=== PATIENT | female | born 1985 | race Caucasian/White ===

== ENCOUNTER 2017-07-06 13:13 | Emergency (ER) | payer OTHER ==
--- NOTE | 2017-07-06 15:23 | EDM.PDOC ---
ED HPI GENERAL MEDICAL PROBLEM - General Chief Complaint: Respiratory Problem Stated Complaint: SOB, COLD, SCRATCHY VOICE Time Seen by Provider: 07/06/17 15:17 Source of Information: Reports: Patient, Family, RN, RN Notes Reviewed History Limitations: Reports: No Limitations - History of Present Illness INITIAL COMMENTS - FREE TEXT/NARRATIVE: Pt presents to the ER with c/o cough with green sputum, congestion, sob at times , and possible fever. She states she was seen on 06/28 in [place] where she is from. She was diagnosed with Bronchitis and prescribed Augmentin and a cough suppressant. She states she has been continually getting worse. She admits to diarrhea intermittently. She denies chest pain, N/V. Patient denies any chances of . Onset: Gradual Chest Pain Score (Numeric/FACES): 8 - Related Data Allergies Allergy/AdvReac Type Severity Reaction Status Date / Time No Known Allergies Allergy Verified 07/06/17 14:43 Home Meds: Home Meds Amoxicillin/Clavulanate K [Augmentin 875 MG/125 MG] 1 tab PO BID 07/06/17 [ History] Cetirizine HCl [Zyrtec] 10 mg PO DAILY 07/06/17 [History] Levonorgestrel [Mirena] 1 each IY ASDIRECTED 07/06/17 [History] guaiFENesin/Codeine Phosphate [Virtussin AC Liquid] 118 ml PO ASDIRECTED [History] Past Medical History - Past Health History Medical/Surgical History: Denies Medical/Surgical History Social & Family History - Family History Family Medical History: Noncontributory - Tobacco Use Smoking Status *Q: Never Smoker - Caffeine Use Caffeine Use: Reports: Soda - Recreational Drug Use Recreational Drug Use: No ED ROS GENERAL - Review of Systems Review Of Systems: ROS reveals no pertinent complaints other than HPI. ED EXAM, GENERAL - Physical Exam Exam: See Below Exam Limited By: No Limitations General Appearance: Alert, WD/WN, No Apparent Distress Eye Exam: Bilateral Eye: Normal Inspection Ears: Normal External Exam, Normal Canal, Hearing Grossly Normal Nose: Normal Inspection Throat/Mouth: Normal Inspection, Normal Oropharynx, Normal Voice, No Airway Compromise Head: Atraumatic, Normocephalic Neck: Normal Inspection, Supple, Non-Tender, Full Range of Motion Respiratory/Chest: No Respiratory Distress, No Accessory Muscle Use, Decreased Breath Sounds, Crackles Cardiovascular: Normal Peripheral Pulses, Regular Rate, Rhythm, No Edema, No Gallop, No JVD, No Murmur, No Rub Peripheral Pulses: 2+: Radial (L), Radial (R) GI/Abdominal: Normal Bowel Sounds, Soft, Non-Tender, No Organomegaly, No Distention, No Abnormal Bruit, No Mass (Female) Exam: Deferred Rectal (Female) Exam: Deferred Back Exam: Normal Inspection, Full Range of Motion Extremities: Normal Inspection, Normal Range of Motion, Non-Tender, No Pedal Edema, Normal Capillary Refill Neurological: Alert, Oriented, Normal Cognition, Normal Gait, No Motor/Sensory Deficits Psychiatric: Normal Affect, Normal Mood Skin Exam: Warm, Dry, Intact, Normal Color, No Rash Lymphatic: No Adenopathy Course - Vital Signs Last Recorded V/S: Last Vital Signs Temp 98.3 F 07/06/17 16:38 Pulse 90 07/06/17 16:38 Resp 18 07/06/17 16:38 BP 115/79 07/06/17 16:38 Pulse Ox 95 07/06/17 16:38 - Orders/Labs/Meds Orders: Active Orders 24 hr Category Date Time Status Levofloxacin/Dextrose 5%-Water [Levaquin in D5W 500 MG/ Med 07/06/17 16:19 Active 100 ML] 500 mg Premix Bag 1 bag IV ONETIME Medication Orders Levofloxacin/Dextrose 500 mg/ (Premix) 100 mls @ 100 mls/hr IV ONETIME ONE Stop: 07/06/17 17:18 Last Admin: 07/06/17 16:28 Dose: 100 mls/hr Labs: Laboratory Tests 07/06/17 07/06/17 Range/Units 15:33 15:33 WBC 12.4 H (5.0-10.0) 10^3/uL RBC 5.34 (4.2-5.4) 10^6/uL Hgb 15.3 (12.0-16.0) g/dL Hct 44.4 (37.0-47.0) % MCV 83.1 (80-100) fL MCH 28.7 (27.0-34.0) pg MCHC 34.5 (33.0-35.0) g/dL Plt Count 355 (150-450) 10^3/uL Neut % (Auto) 60.6 (42.2-75.2) % Lymph % (Auto) 17.0 L (20.5-50.1) % [place] % (Auto) 6.6 (2-8) % Eos % (Auto) 15.2 H (1.0-3.0) % Baso % (Auto) 0.6 (0.0-1.0) % Sodium 136 (135-145) mmol/L Potassium 3.6 (3.6-5.0) mmol/L Chloride 103 (101-111) mmol/L Carbon Dioxide 25.0 (21.0-31.0) mmol/L Anion Gap 11.6 BUN 8 (7-18) mg/dL Creatinine 0.6 (0.6-1.3) mg/dL Est Cr Clr Drug Dosing 115.16 mL/min Estimated GFR (MDRD) > 60 BUN/Creatinine Ratio 13.33 Glucose 82 (74-105) mg/dL Calcium 8.9 (8.4-10.2) mg/dl Total Bilirubin 0.8 (0.2-1.0) mg/dL AST 19 (10-42) IU/L ALT 16 (10-60) IU/L Alkaline Phosphatase 85 (42-121) IU/L Total Protein 7.9 (6.7-8.2) g/dl Albumin 4.5 (3.2-5.5) g/dl Globulin 3.4 Albumin/Globulin Ratio 1.32 Meds: Medications Generic Name Dose Route Start Last Admin Trade Name Freq PRN Reason Stop Dose Admin Levofloxacin/Dextrose 500 mg/ 100 mls @ 100 mls/hr 07/06/17 16:19 07/06/17 16 :28 Premix IV 07/06/17 17:18 100 mls/hr ONETIME ONE Administration Discontinued Medications Generic Name Dose Route Start Last Admin Trade Name Freq PRN Reason Stop Dose Admin Prednisone 40 mg 07/06/17 16:20 07/06/17 16:30 Prednisone PO 07/06/17 16:21 40 mg ONETIME ONE Administration - Radiology Interpretation Free Text/Narrative:: Chest xray: Underlying asthma, no acute findings See rad report Departure - Departure Time of Disposition: 17:03 Disposition: Home, Self-Care 01 Condition: Fair Clinical Impression: Upper respiratory infection Qualifiers: URI type: unspecified URI Qualified Code(s): J06.9 - Acute upper respiratory infection, unspecified - Discharge Information Instructions: Upper Respiratory Infection, Adult, [id number] Forms: ED Department Discharge Additional Instructions: Levaquin 500mg orally once daily for 7 days Prednisone 40mg orally once daily for 5 days Drink plenty of water Follow up with your primary care facility - My Orders Last 24 Hours: My Active Orders 07/06/17 16:19 Levofloxacin/Dextrose 5%-Water [Levaquin in D5W 500 MG/100 ML] 500 mg Premix Bag 1 bag IV ONETIME - Assessment/Plan Last 24 Hours: My Active Orders 07/06/17 16:19 Levofloxacin/Dextrose 5%-Water [Levaquin in D5W 500 MG/100 ML] 500 mg Premix Bag 1 bag IV ONETIME
[2017-07-06 16:05] LABS: CHLORIDE,CL 103 mmol/L (101-111); SODIUM,NA 136 mmol/L (135-145)
[2017-07-06] MEDS ORDERED: Levofloxacin/Dextrose 5%-Water 500 MG in Premix Bag 1 BAG IV ONE (16:19)
[2017-07-06] MEDS ORDERED: predniSONE 20 MG Tab PO ONE (16:20)
== END 2017-07-06 17:30 | disposition home or self-care (01) ==
LOC: DL.ED 13:13
DX: J06.9 Acute upper respiratory infection, unspecified (principal); Z79.899 Other long term (current) drug therapy
CPT/HCPCS: 36415; 71020; 80053; 85025; 87804; 99284; A9270; J1956